=== PATIENT | male | born 1950 | race Two or more races ===

== ENCOUNTER 2016-06-11 09:18 | Day surgery (SDC) | payer OTHER ==
[2016-06-11] MEDS ORDERED: LACTATED RINGERS 1,000 ML IV SCH (09:30)
[2016-06-11] MEDS ORDERED: IV START KIT ONE (09:43)
[2016-06-11] MEDS ORDERED: PROPOFOL 20 ML IV ONE (11:22)
== END 2016-06-11 12:21 | disposition home or self-care (01) ==
LOC: SDC 09:18
PROVIDERS: ATTEND Family Medicine
PROC: 0DJD8ZZ Inspection of Lower Intestinal Tract, Via Natural or Artificial Opening Endoscopic (ICD-10-PCS; principal; 2016-06-11)
DX: Z12.11 Encounter for screening for malignant neoplasm of colon (principal); Z86.010 Personal history of colon polyps; E66.9 Obesity, unspecified; I10 Essential (primary) hypertension; E78.5 Hyperlipidemia, unspecified; R73.03 Prediabetes; Z80.8 Family history of malignant neoplasm of other organs or systems; Z79.82 Long term (current) use of aspirin; Z68.34 Body mass index [BMI] 34.0-34.9, adult; N52.8 Other male erectile dysfunction
CPT/HCPCS: 45378; J7120